=== PATIENT | male | born 2005 | race Caucasian/White ===

== ENCOUNTER 2023-06-16 14:39 | Emergency (ER) | payer MEDICAID ==
[~2023-06-16] VITALS: Ht 185.4 cm; Wt 113.0 kg
[2023-06-16 14:42] VITALS: O2SAT 97
[2023-06-16 17:02] VITALS: BP 145/96; PULSE 92; RESP 16; TEMP 98.9
== END 2023-06-16 17:05 | disposition home or self-care (01) ==
LOC: ER 14:39
DX: S83.91XA Sprain of unspecified site of right knee, initial encounter (principal); J45.909 Unspecified asthma, uncomplicated; Z98.890 Other specified postprocedural states; V00.131A Fall from skateboard, initial encounter; Y93.89 Activity, other specified; Y92.89 Other specified places as the place of occurrence of the external cause; Y99.8 Other external cause status
CPT/HCPCS: 73562; 99283; Z7610; L1830